=== PATIENT | male | born 1950 | race Caucasian/White ===

== ENCOUNTER 2020-09-17 08:00 | Outpatient (CLI) | payer MEDICARE, MEDICAID ==
[~2020-09-17] VITALS: Ht 172.7 cm; Wt 68.2 kg
[2020-09-17 13:46] LABS: AMPHETAMINE SCREEN, URINE Positive (Negative); BARBITURATE SCREEN, URINE Negative (Negative); BENZODIAZEPINE SCREEN, URINE Negative (Negative); CANNABINOID SCREEN, URINE Positive (Negative); COCAINE SCREEN, URINE Negative (Negative); METHADONE SCREEN, URINE Negative (Negative); OPIATE SCREEN, URINE Negative (Negative)
== END 2020-09-17 23:59 | disposition home or self-care (01) ==
LOC: STAR 08:00 → EDSTATUS 09-18 07:00
PROVIDERS: ATTEND Orthopaedic Surgery Foot and Ankle Surgery
DX: Z01.818 Encounter for other preprocedural examination (principal); M79.672 Pain in left foot; M19.072 Primary osteoarthritis, left ankle and foot; Z20.822 Contact with and (suspected) exposure to COVID-19
CPT/HCPCS: 80307; 93005; U0003; U0005